=== PATIENT | male | born 1970 | race African-American/Black ===

== ENCOUNTER 2019-01-22 16:44 | Emergency (ER) | payer SELFPAY ==
[2019-01-22] MEDS ORDERED: cloNIDine HCl 0.1 MG TAB ONE (17:46)
[2019-01-22 18:29] LABS: BUN Blood Urea Nitrogen 20 mg/dL (7-18); Bicarbonate 24 mmol/L (21-32); Glucose Level 99 mg/dL (74-106); Potassium 4.5 mmol/L (3.5-5.1); Sodium Level 141 mmol/L (136-145); Troponin (Emerg Dept Use Only) < 0.02 ng/mL (0.0-0.045)
--- NOTE | 2019-01-22 18:33 | ER ---
Nurse's Notes [facility] Name: Surya Munson Age: 48 yrs Sex: Male : 1970 Arrival Date: 01/22/2019 Time: 16:54 Bed 15 Private MD: Diagnosis: Hypertension Presentation: 01/22 16:57 Presenting complaint: EMS states: Pt was at work when he got a chemical spill on his L tr5 hand. Upon assessment pt had some high blood pressure so he was brought in for a check up. Pt states that he has hypertension but is not currently taking any medications to treat it. Transition of care: Work. Onset of symptoms was January 22, 2019. Risk Assessment: Do you want to hurt yourself or someone else? Patient reports no desire to harm self or others. Initial Sepsis Screen: Does the patient meet any 2 criteria? No. Patient's initial sepsis screen is negative. Does the patient have a suspected source of infection? No. Patient's initial sepsis screen is negative. Care prior to arrival: None. 16:57 Method Of Arrival: EMS: [facility] tr5 16:57 Acuity: AGUSTIN 3 tr5 Historical: - Allergies: 17:02 No Known Allergies; tr5 - Home Meds: 17:02 None [Active]; tr5 - PMHx: 17:02 Hypertension; tr5 - PSHx: 17:02 None; tr5 - Immunization history:: Adult Immunizations up to date. - Social history:: Smoking status: unknown. - Ebola Screening: : No symptoms or risks identified at this time. - Family history:: not pertinent. - Hospitalizations: : No recent hospitalization is reported. Screenin:13 Abuse screen: Denies threats or abuse. Nutritional screening: No deficits noted. tr5 Tuberculosis screening: No symptoms or risk factors identified. Fall Risk None identified. Assessment: 17:13 General: Appears in no apparent distress. Behavior is calm, cooperative, appropriate tr5 for age. Pain: Denies pain. Neuro: Level of Consciousness is awake, alert, obeys commands, Oriented to person, place, time, Pantograph Watcher are equal bilaterally Moves all extremities. Cardiovascular: Heart tones present Capillary refill < 3 seconds Pulses are all present. Edema is absent. Respiratory: Airway is patent Respiratory effort is even, unlabored, Respiratory pattern is regular, symmetrical. GI: No signs and/or symptoms were reported involving the gastrointestinal system. : No signs and/or symptoms were reported regarding the genitourinary system. EENT: No signs and/or symptoms were reported regarding the EENT system. Derm: Skin is intact, Skin is dry, Skin is normal, Skin temperature is warm. Musculoskeletal: No signs and/or symptoms reported regarding the musculoskeletal system. 18:00 Reassessment: Patient appears in no apparent distress at this time. Patient and/or tr5 family updated on plan of care and expected duration. Pain level reassessed. Patient is alert, oriented x 3, equal unlabored respirations, skin warm/dry/pink. Vital Signs: 17:02 BP 177 / 100; Pulse 93; Resp 16; Temp 99.4(O); Pulse Ox 100% on R/A; tr5 18:00 BP 162 / 104; Pulse 78; Resp 16; Pulse Ox 100% on R/A; tr5 ED Course: 16:54 Patient arrived in ED. tr5 16:56 Frandy Reeder RN is Primary Nurse. tr5 16:56 Tito Dupree MD is Attending Physician. rn 17:01 Triage completed. tr5 17:02 Arm band placed on. tr5 17:13 Call light in reach. Side rails up X 1. tr5 17:53 Missed attempt(s): 20 gauge in right antecubital area. Bleeding controlled, band aid dh3 applied, catheter tip intact. 17:56 Initial lab(s) drawn, by nj, sent to lab. Inserted saline lock: 22 gauge in right hand, dh3 using aseptic technique. Blood collected. 18:02 EKG done, by technology coordinator. reviewed by Tito Dupree MD. [facility] 19:09 No provider procedures requiring assistance completed. Patient did not have IV access tr5 during this emergency room visit. Administered Medications: 17:51 Drug: cloNIDine 0.1 mg Route: PO; tr5 Outcome: 18:33 Discharge ordered by . rn 19:09 Discharged to home ambulatory. tr5 19:09 Condition: stable 19:09 Discharge instructions given to patient, Instructed on discharge instructions, follow up and referral plans. Demonstrated understanding of instructions, follow-up care. 19:11 Patient left the ED. tr5 Signatures: Tito Dupree MD MD rn Herrera, [facility] Marian Cota sm3 Frandy Reeder, RN RN tr5
--- NOTE | 2019-01-22 18:33 | EDPHYS ---
Physician Documentation [facility] Name: Surya Munson Age: 48 yrs Sex: Male : 1970 Arrival Date: 01/22/2019 Time: 16:54 Bed 15 Private MD: ED Physician Tito Dupree HPI: 01/22 17:18 This 48 yrs old Black Male presents to ER via EMS with complaints of high blood rn pressure. 17:18 REports noted to have high blood pressure today, had mild exposure and was cleared, got rn some residual on hand, was wearing gloves, felt irritation, got irrigated then put in shower for 30 min. Denies any symptoms regarding the exposure. BP was elevated and sent here for further evaluation. Reports has been on BP meds for some time, ran out and hasn't gotten it refilled, does not know name of medication. NO headache/chest pain/sob/abd pain/focal neuro complaint/vision problem.. Onset: The symptoms/episode began/occurred at an unknown time. Severity of symptoms: At their worst the symptoms were moderate. The patient has experienced similar episodes in the past. The patient has not recently seen a physician. Reports normal BP for him is 170s systolic over 90s. Historical: - Allergies: 17:02 No Known Allergies; tr5 - Home Meds: 17:02 None [Active]; tr5 - PMHx: 17:02 Hypertension; tr5 - PSHx: 17:02 None; tr5 - Immunization history:: Adult Immunizations up to date. - Social history:: Smoking status: unknown. - Ebola Screening: : No symptoms or risks identified at this time. - Family history:: not pertinent. - Hospitalizations: : No recent hospitalization is reported. ROS: 17:18 Constitutional: Negative for fever, chills, and weight loss, Eyes: Negative for injury, rn pain, redness, and discharge, Neck: Negative for injury, pain, and swelling, Cardiovascular: Negative for chest pain, palpitations, and edema, Respiratory: Negative for shortness of breath, cough, wheezing, and pleuritic chest pain, Abdomen/GI: Negative for abdominal pain, nausea, vomiting, diarrhea, and constipation, MS/Extremity: Negative for injury and deformity, Skin: Negative for injury, rash, and discoloration, Neuro: Negative for headache, weakness, numbness, tingling, and seizure. Exam: 17:18 Constitutional: Overweight male, awake, alert, and in no acute distress. Head/Face: rn Normocephalic, atraumatic. Eyes: Pupils equal round and reactive to light, extra-ocular motions intact. Lids and lashes normal. Conjunctiva and sclera are non-icteric and not injected. Cornea within normal limits. Periorbital areas with no swelling, redness, or edema. Cardiovascular: Regular rate and rhythm, No JVD. No pulse deficits. Respiratory: Lungs have equal breath sounds bilaterally, clear to auscultation. No increased work of breathing, no retractions or nasal flaring. Abdomen/GI: soft, non-tender MS/ Extremity: Pulses equal, no cyanosis. Neurovascular intact. Full, normal range of motion. Equal circumference. Neuro: Awake and alert, GCS 15, oriented to person, place, time, and situation. Cranial nerves II-XII grossly intact. Motor strength 5/5 in all extremities. Sensory grossly intact. Cerebellar exam normal. 18:30 ECG was reviewed by the Attending Physician. rn Vital Signs: 17:02 BP 177 / 100; Pulse 93; Resp 16; Temp 99.4(O); Pulse Ox 100% on R/A; tr5 18:00 BP 162 / 104; Pulse 78; Resp 16; Pulse Ox 100% on R/A; tr5 MDM: 16:56 Patient medically screened. rn 18:30 Differential Diagnosis asymptomatic HTN. Data reviewed: vital signs, nurses notes, laborer electroplating test result(s), EKG, and as a result, I will discharge patient. Counseling: I had a detailed discussion with the patient and/or guardian regarding: the historical points, exam findings, and any diagnostic results supporting the discharge/admit diagnosis, lab results, the need for outpatient follow up, to return to the emergency department if symptoms worsen or persist or if there are any questions or concerns that arise at home. Response to treatment: the patient's symptoms have mildly improved after treatment, and as a result, I will discharge patient. Special discussion: I discussed with the patient/guardian in detail that at this point there is no indication for admission to the hospital. It is understood, however, that if the symptoms persist or worsen the patient needs to return immediately for re-evaluation. Based on the history and exam findings, there is no indication for further emergent testing or inpatient evaluation. I discussed with the patient/guardian the need to see the supply teacher for further evaluation of the symptoms. I discussed with the patient/guardian the need to see the primary care provider for further evaluation of the symptoms. ED course: Patient still asymptomatic, BP improved a little but explained to him dont want to be too aggressive if asymptomatic because could cause watershed infarct. He states has standing prescription from [place] for meds, just hasn't refilled them. 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 Nothing to do about possible exposure at work as patient is asymptomatic as well and BP issue is not work related. . 01/22 17:16 Order name: BMP; Complete Time: 18:33 rn 01/22 17:16 Order name: Troponin (emerg Dept Use Only); Complete Time: 18:33 rn 01/22 17:16 Order name: EKG; Complete Time: 17:16 rn 01/22 17:16 Order name: EKG - Nurse/Tech; Complete Time: 17:51 rn 01/22 17:16 Order name: IV Start; Complete Time: 17:51 rn EC:30 Rate is 82 beats/min. Rhythm is regular. QRS Dixie is Normal. IL interval is normal. QRS rn interval is normal. QT interval is normal. No Q waves. T waves are Normal. No ST changes noted. Clinical impression: Normal ECG. Interpreted by me. Reviewed by me. Administered Medications: 17:51 Drug: cloNIDine 0.1 mg Route: PO; tr5 Disposition: 01/22/19 18:33 Discharged to Home. Impression: Hypertension. - Condition is Stable. - Discharge Instructions: Hypertension. - Medication Reconciliation Form, Thank You Letter, Antibiotic Education, Prescription Opioid Use form. - Follow up: Private Physician; When: As needed; Reason: Recheck today's complaints, Re-evaluation by your physician. - Problem is new. - Symptoms have improved. Signatures: Dispatcher [employer] EDMS Tito Dupree MD MD rn Rodriguez, Tommie, RN RN tr5 Corrections: (The following items were deleted from the chart) 19:11 18:33 01/22/2019 18:33 Discharged to Home. Impression: Hypertension. Condition is tr5 Stable. Discharge Instructions: Hypertension. Forms are Medication Reconciliation Form, Thank You Letter, Antibiotic Education, Prescription Opioid Use. Follow up: Private Physician; When: As needed; Reason: Recheck today's complaints, Re-evaluation by your physician. Problem is new. Symptoms have improved. rn
[2019-01-22 19:15] VITALS: TEMP 99.4; O2SAT 100
[2019-01-22 19:16] VITALS: BP 162/104
--- NOTE | 2019-01-23 12:13 | EKG ---
Test Date: 2019-01-22 Test Time: 17:50:13 Honing Machine Set Up Operator: PATTI MEASUREMENT RESULTS: Intervals: Rate: 82 ME: 156 QRSD: 80 QT: 368 QTc: 429 Bonnyman: P: 67 ME: 156 QRS: 76 T: 58 INTERPRETIVE STATEMENTS: Normal sinus rhythm Normal ECG No previous ECG available for comparison Electronically Signed On 01-23-19 12:09:28 CDT by Obinna Barron
== END 2019-01-22 19:11 | disposition home or self-care (01) ==
LOC: ER 16:44
DX: I10 Essential (primary) hypertension (principal)
CPT/HCPCS: 36415; 80048; 84484; 93005; 99284